=== PATIENT | female | born 1970 | race African-American/Black ===

== ENCOUNTER 2017-08-07 10:33 | Emergency (ER) | payer BC ==
[~2017-08-07] VITALS: Ht 160 cm; Wt 85.3 kg
[2017-08-07 10:36] VITALS: Ht 160 cm; Wt 85.3 kg
[2017-08-07 11:57] VITALS: BP 130/86
== END 2017-08-07 11:57 | disposition home or self-care (01) ==
LOC: ED 10:33
DX: J45.901 Unspecified asthma with (acute) exacerbation (principal); Z88.6 Allergy status to analgesic agent
CPT/HCPCS: J7512; J7613